=== PATIENT | male | born 2000 | race Caucasian/White ===

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

== ENCOUNTER 2022-02-03 13:46 | Emergency (ER) | payer OTHER ==
[~2022-02-03] VITALS: Ht 188 cm; Wt 65.9 kg
[~2022-02-03 13:46] MED LIST: ZITHROMAX Z PA250 MG PO
[2022-02-03 14:19] VITALS: TEMP 98.6
[2022-02-03 14:45] VITALS: BP 125/76; PULSE 98
== END 2022-02-03 14:45 | disposition home or self-care (01) ==
LOC: COL.ER 13:46
DX: D36.7 Benign neoplasm of other specified sites (principal); F17.210 Nicotine dependence, cigarettes, uncomplicated; Z28.310 Unvaccinated for COVID-19

== ENCOUNTER 2022-02-10 17:39 | Emergency (ER) | payer OTHER ==
[~2022-02-10] VITALS: Ht 188 cm; Wt 63.6 kg
[2022-02-10 18:14] LABS: COLLECTION METHOD CLEAN CATCH
[2022-02-10 18:26] LABS: BASO % 0.3 % (0.0-2.0); EOS # 0.1 K/mm3 (0.0-0.7); EOS % 1.9 % (0.0-4.0); GRAN # 3.6 K/mm3 (1.4-6.5); GRAN % 56.1 % (42.2-75.2); HEMATOCRIT 46.1 % (36.0-47.0); HEMOGLOBIN 16.2 g/dl (12.5-16.1); LYMPH % 30.6 % (20.0-51.0); MEAN CELL VOLUME 89 fl (80.0-95.0); MEAN CORPUSCULAR HEMOGLOBIN 31 pg (26-32); MEAN CORPUSCULAR HGB CONC 35 g/dl (33.0-37.0); MEAN PLATELET VOLUME 11.1 fl (7.4-10.4); MONO # 0.7 K/mm3 (0.1-0.6); MONO % 10.9 % (1.7-9.3); PLATELET COUNT 224 K/mm3 (130-400); RED BLOOD COUNT 5.18 M/mm3 (4.20-5.60); REDCELL DISTRIBUTION WIDTH-CV 12.5 % (11.5-14.5)
[2022-02-10 18:30] LABS: PH 7 (5-8); SQUAMOUS EPITHELIAL None Seen /hpf (0-10); URINE APPEARANCE Clear (CLEAR/HAZY); URINE BACTERIA Rare /hpf (NONE SEEN); URINE BLOOD 1+ (NEGATIVE); URINE COLOR Straw (YELLOW); URINE GLUCOSE Negative (NEGATIVE); URINE KETONE Negative (NEGATIVE); URINE NITRATE Negative (NEGATIVE); URINE PROTEIN(semi-quant) Negative (NEGATIVE); URINE UROBILINOGEN Negative (NEGATIVE)
[2022-02-10 18:48] LABS: ALBUMIN 4.4 gm/dL (3.5-5.0); BILIRUBIN,TOTAL 0.7 mg/dL (0.2-1.2); CALCIUM 9.2 mg/dL (8.4-10.2); CREATININE, serum 0.92 mg/dL (0.72-1.25); POTASSIUM 3.7 mmol/L (3.5-4.5); TOTAL PROTEIN 7.7 gm/dL (6.2-8.1)
[2022-02-10] MEDS ORDERED: ZOFRAN ODT4 MG PO (20:02)
[2022-02-10] MEDS ORDERED: OMNICEF 300MG300 MG PO (20:03)
[2022-02-10 20:20] VITALS: BP 104/64; PULSE 72; TEMP 98.2
== END 2022-02-10 20:20 | disposition home or self-care (01) ==
LOC: COL.ER 17:39
PROVIDERS: Nurse Practitioner Primary Care
DX: N39.0 Urinary tract infection, site not specified (principal); J06.9 Acute upper respiratory infection, unspecified; N13.30 Unspecified hydronephrosis; F17.200 Nicotine dependence, unspecified, uncomplicated; Z87.442 Personal history of urinary calculi; Z20.822 Contact with and (suspected) exposure to COVID-19; Z28.310 Unvaccinated for COVID-19
CPT/HCPCS: J0696; J2405; J7030; Q9967